=== PATIENT | female | born 1995 | race Hispanic/Latino ===

== ENCOUNTER 2018-08-10 20:20 | Emergency (ER) | payer OTHER, SELFPAY ==
[2018-08-10] MEDS ORDERED: hydrOXYzine 25 MG TAB ONE (21:06)
--- NOTE | 2018-08-10 21:09 | RAD ---
Portable frontal chest radiograph: 08/10/2018 COMPARISON: None HISTORY: Chest heaviness, shortness of breath FINDINGS: Lungs are clear. Heart and mediastinal contours appear within normal limits. IMPRESSION: No acute findings.
--- NOTE | 2018-08-13 11:16 | EKG ---
Test Reason : Blood Pressure : / mmHG Vent. Rate : 074 BPM Atrial Rate : 074 BPM P-R Int : 124 ms QRS Dur : 072 ms QT Int : 350 ms P-R-T Axes : 035 023 024 degrees QTc Int : 388 ms Normal sinus rhythm with sinus arrhythmia Normal ECG Confirmed by CHIOMA SHEA M.D. ([id number]), state editor TERESA SALCEDO ([id number] on 08/13/2018 11:16:08 AM Referred By: Confirmed By:CHIOMA SHEA M.D.
== END 2018-08-10 22:05 | disposition home or self-care (01) ==
LOC: ERS 20:20
DX: F41.9 Anxiety disorder, unspecified (principal)
CPT/HCPCS: 71045; 93005